=== PATIENT | male | born 1980 | race African-American/Black ===

== ENCOUNTER 2016-08-10 01:42 | Emergency (ER) | payer OTHER ==
[~2016-08-10] VITALS: Ht 172.7 cm; Wt 74.8 kg
[~2016-08-10 01:42] MED LIST: AMLODIPINE BESY10 MG ORAL; CARVEDILOL25 MG ORAL; HYDRALAZINE HCL50 MG ORAL; ISOSORBIDE MON120 M1 PO; LASIX20 M1 ORAL; SPIRONOLACTONE MISC; SPIRONOLACTONE100 MG ORAL
--- NOTE | 2016-08-10 02:07 | Emergency Room Report ---
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 He presents with a discharge that he noticed tonight. He has one partner and had unprotected sex. No fever or chills. No joint pain. No other complaint. No history of HIV. Allergies: Coded Allergies: No Known Allergies (Unverified , 10/02/15) Patient History Past Medical History: see triage record, old chart reviewed Past Surgical History: none Pertinent Family History: none Social History: Denies: smoking Immunizations: other Reviewed Nursing Documentation: PMH: Agreed, PSxH: Agreed Nursing Documentation-PMH Hx Hypertension: Yes Hx Dialysis: Yes - Review of Systems Eye: Denies: blurred vision, eye pain ENT: Denies: ear pain, nose congestion, throat swelling Respiratory: Denies: cough, shortness of breath Cardiovascular: Denies: chest pain, palpitations Gastrointestinal: Denies: abdominal pain, diarrhea, nausea, vomiting Genitourinary: Reports: discharge Musculoskeletal: Denies: back pain, joint pain Skin: Denies: rash Neurological: Denies: headache, numbness Endocrine: Denies: increased thirst, increased urine Hematologic/Lymphatic: Denies: easy bruising All Other Systems: negative except mentioned in HPI Physical Exam Vital Signs Date Time Temp Pulse Resp B/P Pulse Ox O2 Delivery O2 Flow Rate FiO2 08/10/16 01:47 98.1 90 14 153/97 98 Room Air vitals with hypertension Sp02 EP Interpretation: reviewed, normal General Appearance: well appearing, no apparent distress, alert Head: normocephalic, atraumatic Eyes: bilateral eye EOMI, bilateral eye PERRL ENT: hearing grossly normal, normal pharynx Neck: full range of motion, supple, no meningismus Respiratory: chest non-tender, lungs clear, normal breath sounds Cardiovascular #1: regular rate, rhythm, no murmur Gastrointestinal: normal bowel sounds, non tender, no mass, no organomegaly, no bruit, non-distended Genitourinary: other - Greenish discharge from penis. Uncircumcised. Testicles normal. Musculoskeletal: back normal, gait/station normal, normal range of motion Neurologic: alert, oriented x3 Psychiatric: mood/affect normal Skin: warm/dry Medical Decision Making Diagnostic Impression: Primary Impression: Urethritis ER Course Patient with urethritis. Most likely diarrhea. No evidence of systemic infection. We'll discharge home. Recommend outpatient anonymous testing for HIV, hepatitis, syphilis and other STDs. Last Vital Signs Date Time Temp Pulse Resp B/P Pulse Ox O2 Delivery O2 Flow Rate FiO2 08/10/16 01:47 98.1 90 14 153/97 98 Room Air Status: improved Disposition: HOME, SELF-CARE Condition: Stable Patient Instructions: Urethritis, Adult Additional Instructions: Followup with your Dr. in 7 days. Recommend outpatient testing for HIV, hepatitis, syphilis and other STDs. This can be done and anonymously. Have your partner treated also. Return if worse. ZOEY FUNK M.D. Aug 10, 2016 02:07
[2016-08-10] MEDS ORDERED: Lidocaine 1% Plain 30 ml INJ ONE (02:09)
[2016-08-10] MEDS ORDERED: Azithromycin 250mg tab ORAL ONE (02:15)
[2016-08-10 02:31] VITALS: BP 153/97
== END 2016-08-10 02:34 | disposition home or self-care (01) ==
LOC: EMR 02:05
DX: R36.9 Urethral discharge, unspecified (principal)
CPT/HCPCS: 96372; 99283; J0696; J2001; Q0144

== ENCOUNTER 2017-10-12 23:40 | Emergency (ER) | payer MEDICAID, OTHER ==
[~2017-10-12] VITALS: Ht 172.7 cm; Wt 79.8 kg
[2017-10-13 00:08] VITALS: BP 176/110
--- NOTE | 2017-10-13 00:08 | Emergency Room Report ---
History of Present Illness General Chief Complaint: Male Urogenital Problems Source: Patient Present Illness HPI This is a 36-year-old male with a history of renal failure on hemodialysis. He presents with chief complaint of penile discharge. Onset today. Similar symptom in the past. I saw him about 2 months ago for the same thing. He is sexually active. Unprotected sex. Denies any fever chills but denies any nausea vomiting. Discharge is yellowish in color. Does have some dysuria. Allergies: Coded Allergies: No Known Allergies (Unverified , 10/02/15) Patient History Past Medical History: see triage record, old chart reviewed, renal disease, dialysis Past Surgical History: other Pertinent Family History: none Social History: Denies: smoking Immunizations: other Reviewed Nursing Documentation: PMH: Agreed; PSxH: Agreed Nursing Documentation-PMH Past Medical History: No History, Except For Hx Hypertension: Yes Hx Dialysis: Yes - T-T-Sat Review of Systems Eye: Denies: eye pain, blurred vision ENT: Denies: ear pain, nose congestion, throat swelling Respiratory: Denies: cough, shortness of breath Cardiovascular: Denies: chest pain, palpitations Gastrointestinal: Denies: abdominal pain, diarrhea, nausea, vomiting Genitourinary: Reports: discharge Musculoskeletal: Denies: back pain, joint pain Skin: Denies: rash Neurological: Denies: headache, numbness Endocrine: Denies: increased thirst, increased urine Hematologic/Lymphatic: Denies: easy bruising All Other Systems: negative except mentioned in HPI Physical Exam Vital Signs Date Time Temp Pulse Resp B/P (MAP) Pulse Ox O2 Delivery O2 Flow Rate FiO2 10/12/17 23:51 98.7 80 16 182/126 99 Room Air 98.8 vitals with high blood pressure Sp02 EP Interpretation: reviewed, normal General Appearance: well appearing, no apparent distress, alert Head: normocephalic, atraumatic Eyes: bilateral eye PERRL, bilateral eye EOMI ENT: hearing grossly normal, normal pharynx Neck: full range of motion, supple, no meningismus Respiratory: chest non-tender, lungs clear, normal breath sounds Cardiovascular #1: regular rate, rhythm, no murmur Gastrointestinal: normal bowel sounds, non tender, no mass, no organomegaly, no bruit, non-distended Genitourinary: other - yellowish discharge Musculoskeletal: back normal, gait/station normal, normal range of motion Neurologic: alert, oriented x3 Psychiatric: mood/affect normal Skin: warm/dry Medical Decision Making Diagnostic Impression: Primary Impression: Urethritis Additional Impression: Hypertension Qualified Codes: I10 - Essential (primary) hypertension ER Course Is in with a urethritis. This may be gonorrhea or chlamydia. Recommend outpatient testing for HIV, hepatitis, syphilis and other STD. Last Vital Signs Date Time Temp Pulse Resp B/P (MAP) Pulse Ox O2 Delivery O2 Flow Rate FiO2 10/12/17 23:51 98.7 80 16 182/126 99 Room Air 98.8 Status: improved Disposition: HOME, SELF-CARE Condition: Stable Patient Instructions: Urethritis, Adult Additional Instructions: Follow-up with your doctor in 7 days. Recommend outpatient testing for HIV, hepatitis, syphilis and other STDs. Check your blood pressure 1 you get home. If still high, taken extra dose of your hydralazine. Return if worse. ZOEY FUNK M.D. Oct 13, 2017 00:08
[2017-10-13] MEDS ORDERED: Lidocaine 1% MPF 10mg/ml 5ml INJ ONE (00:15)
[2017-10-13] MEDS ORDERED: Azithromycin 250mg tab ORAL ONE (00:15)
[2017-10-13 00:20] VITALS: BP 141/100
== END 2017-10-13 00:15 | disposition home or self-care (01) ==
LOC: EMR 23:56
DX: N34.2 Other urethritis (principal); I12.0 Hypertensive chronic kidney disease with stage 5 chronic kidney disease or end stage renal disease; N18.6 End stage renal disease; Z99.2 Dependence on renal dialysis
CPT/HCPCS: 96372; 99283; J0696; Q0144